=== PATIENT | male | born 1995 | race Caucasian/White ===

== ENCOUNTER 2020-12-01 20:01 | Inpatient (IN) | payer SELFPAY ==
[2020-12-01 20:10] VITALS: BP 151/90; PULSE 114; RESP 16; TEMP 36.8; O2SAT 97; BMI 25.8
--- NOTE | 2020-12-01 20:15 | ECG_ITS ---
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: : 1995 Requested By: Luis A Acosta Order Number: [id number] Tabby MD: MILAGROS VIDAL Measurements Intervals [place] Rate: 94 P: 76 [place]: 146 QRS: 56 QRSD: 114 T: 57 QT: 334 QTc: 418 Interpretive Statements SINUS RHYTHM INCOMPLETE RIGHT BUNDLE BRANCH BLOCK [90+ ms QRS DURATION, TERMINAL R IN V1/V2, 40+ ms S IN I/aVL/V4/V5/V6] No previous ECG available for comparison Electronically Signed On 12-02-2020 18:49:22 CDT by MILAGROS VIDAL [email or web address] with a [id number]
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
[2020-12-01 20:32] LABS: Basophils % 0.2 %; Eosinophils % 0.2 %; Hematocrit 41.8 % (42.0-52.0); Hemoglobin 13.9 g/dL (11.7-16.6); Lymphocytes # 1.3 10^3/uL (0.8-4.8); Lymphocytes % 10.5 %; Mean Corpuscular HGB Conc 33.3 g/dL (30.0-36.0); Mean Corpuscular Hemoglobin 29.3 pg (28.0-34.0); Mean Platelet Volume 9.7 fL (7.4-10.4); Monocytes # 0.9 10^3/uL (0.2-0.9); Monocytes % 7.4 %; Neutrophils # 9.77 10^3/uL (1.8-7.7); Neutrophils % 81.4 %; Nucleated Red Blood Cells % 0 %; Platelet Count 327 10^3/cmm (130-400); Red Blood Count 4.75 10^6/uL (4.1-5.3); Red Cell Distribution Width 12.6 % (12.1-15.1)
[2020-12-01 20:55] LABS: Add Urine Microscopic? NO; Charge for UA Resulting for Rev
[2020-12-01 21:00] LABS: Alanine Aminotransferase 13 U/L (0-41); Albumin Level 4.7 g/dL (3.5-5.2); Alkaline Phosphatase 55 IU/L (40-130); Anion Gap 18.7 (5-19); Aspartate Amino Transferase 23 U/L (0-40); Blood Urea Nitrogen 8 mg/dL (6-20); Calcium 9.7 mg/dL (8.5-10.5); Carbon Dioxide 22 mmol/L (22-29); Chloride 109 mmol/L (98-107); Globulin 2.6 g/dL (1.3-4.6); Glomerular Filtration Rate 74.4 mL/min (90-130); Glucose 107 mg/dL (65-115); Osmolality Calculated 301 mOsm/kg (285-295); Potassium 3.7 mmol/L (3.5-5.1); Sodium 146 mmol/L (136-145); Thyroid Stimulating Hormone 1.12 uIU/mL (0.27-4.20); Total Bilirubin 0.4 mg/dL (0.15-1.2); Total Protein 7.3 g/dL (6.6-8.7)
[2020-12-01 21:00] LABS: Bilirubin Urine Neg (Negative); Blood Urine Neg (Negative); Glucose Urine UA Norm (Normal); Ketones Urine Negative (Negative); Leukocyte Esterase Urine Negative (Negative); Nitrate Urine Negative (Negative); Protein Urine Neg (Negative); Urine Appearance Clear (CLEAR); Urine Color Yellow (Yellow); Urobilinogen Urine Norm (Negative); pH Urine 6 (5-7)
[2020-12-01 21:02] LABS: Acetaminophen < 5.0 ug/mL (10-30); Salicylate < 0.3 mg/dL (3-10)
[2020-12-01 21:37] LABS: Amphetamines Screen Urine Negative (Negative); Barbiturates Screen Urine Negative (Negative); Benzodiazepines Screen Urine Negative (Negative); Cocaine Screen Urine Negative (Negative); Opiate Screen Urine Negative (Negative); PCP Screen Urine Negative (Negative); THC Screen Urine Positive (Negative)
[2020-12-01] MEDS: iohexol 300 mg/mL 100 mL Btl IV (21:43)
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
[2020-12-01 22:59] VITALS: BP 138/72; PULSE 91; RESP 20; TEMP 36.8; O2SAT 97
[2020-12-01 23:10] VITALS: BP 122/69; PULSE 91; RESP 21; TEMP 36.8; O2SAT 95
[2020-12-01 23:11] VITALS: BP 122/69; PULSE 91; RESP 21; TEMP 36.8; O2SAT 95
[2020-12-01 23:54] LABS: Alcohol Level 221 mg/dL (0-10)
[2020-12-02 06:00] VITALS: BP 138/91; PULSE 66; RESP 20; TEMP 36.8; O2SAT 98
--- NOTE | 2020-12-02 07:58 | PC.NURSE ---
AM note Patient resting in bed during assessment, denied SI,HI. Patient denied desire to eat breakfast.
[2020-12-02] MEDS: nicotine 21 mg Patch 1 PATCH TRANSDERMA (12:37)
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
[2020-12-02] MEDS: citalopram 20 mg Tablet PO (13:02)
[2020-12-02 14:00] VITALS: BP 142/81; PULSE 89; RESP 16; TEMP 36.9; O2SAT 95
[2020-12-02 21:25] VITALS: BP 136/81; PULSE 70; RESP 16; TEMP 37; O2SAT 99
[2020-12-03 05:10] VITALS: BP 102/54; PULSE 82; RESP 18; TEMP 36.6; O2SAT 98
[2020-12-03 06:55] LABS: Glucose Point of Care 82 mg/dL (70-110)
[2020-12-03] MEDS: citalopram 20 mg Tablet PO (08:40)
--- NOTE | 2020-12-03 10:23 | P.PN_ITS ---
Subjective NPU Subjective: Interval history: Continues to be dismissive about the events leading to his hospitalization Continues to report that medications do not help him and that therapy does not help him Denies any interval mood symptoms, denies any suicidal ideation, denies any homicidal ideation Compliant with medication, states that it does not make him feel well Per staff, no interval behavioral disturbances Mental Status Exam MSE Comments: Lying in his bed, continues to be unkempt, disheveled, irritable but cooperative Psychomotor activity is somewhat decreased, no agitation Speech is low volume, normal rate, spontaneous, fair articulation, not pressured I'm fine, constricted, not labile Alert and oriented to person, place, time, situation Memory and concentration are fair per interview Thought process, linear, no flight of ideas, no looseness of associations Thought content, no delusions, does not appear to be attending to any internal stimuli, no suicidal homicidal ideation Insight and judgment appear to be poor to fair at best Vitals/I&O/Wt Last Vital Signs Temp 97.9 F 12/03/20 05:10 Pulse 82 12/03/20 05:10 Resp 18 12/03/20 05:10 BP 102/54 12/03/20 05:10 Pulse Ox 98 12/03/20 05:10 Weight last 48 hrs Weight 74.843 kg Data NPU : 12/01/20 20:21 12/01/20 20:21 A&P Assessment and plan (1) Suicidal ideation: Status: Acute (2) Homicidal ideation: Status: Acute (3) Alcohol intoxication: Status: Acute (4) Cannabis abuse: Status: Acute (5) PTSD (post-traumatic stress disorder): Status: Acute Additional A&P Information Continues to report PTSD symptoms but states that he does not want to take any medication that it makes his symptoms worse and that only marijuana helps with his symptoms. Continues to have poor to no insight into recent events of making threats towards other people as well as reporting that he would kill himself after killing others. Continues to require observation. CONTINUE current medication, continue to monitor Involuntary Hold Information 96 Hour Hold: 96 Hour Involuntary Admission: Yes 96 Hour Hold Ending Date: 12/06/20 96 Hour Hold Ending Time: 19:40 Attestations NPU Medical Necessity Statement*: Continues to require psychiatric hospitalization given lack of insight into patient's homicidal and suicidal threats Coding Level of Care Code Acute Movie Operator for g Fwd Diagnoses Suicidal ideation R45.851 Homicidal ideation R45.850 Alcohol intoxication F10.929 Cannabis abuse F12.10 PTSD (post-traumatic stress disorder) F43.10
[2020-12-03 13:11] VITALS: BP 129/71; PULSE 76; RESP 18; TEMP 37.2; O2SAT 96
[2020-12-03] MEDS: nicotine 21 mg Patch 1 PATCH TRANSDERMA (13:42)
[2020-12-03] MEDS: ondansetron 4 MG Tablet PO (18:36)
[2020-12-03 20:55] VITALS: BP 154/83; PULSE 82; RESP 18; TEMP 36.6; O2SAT 96
--- NOTE | 2020-12-04 05:42 | PC.NURSE ---
PM ASSESSMENT PT CALM, SPOKE TO MOTHER, REQUESTING A1C, AND A VIT D LEVEL NO PAIN, DENIES ALL, V/S ARE WNL
[2020-12-04 06:00] VITALS: BP 111/63; PULSE 82; RESP 18; TEMP 36.5; O2SAT 97
[2020-12-04] MEDS: citalopram 20 mg Tablet PO (09:34)
[2020-12-04] MEDS: ondansetron 4 MG Tablet PO (12:32)
--- NOTE | 2020-12-04 13:42 | P.PN_ITS ---
Subjective NPU Subjective: Interval history: Patient reports improving mood although occasionally irritable, denies any interval suicidal ideation Denies any homicidal ideation, states he has no thoughts about harming others Reports that he continues to have an upset stomach but reports being compliant with his medication Reports that his appetite has improved some Per staff report, no interval behavioral disturbances Mental Status Exam MSE Comments: Sitting up on his bed, unkempt, wearing hospital scrubs, polite and cooperative with interview, good eye contact Psychomotor activity is neither increased nor decreased, no agitation Speech is low volume, normal rate, spontaneous, fair articulation, not pressured I feel okay, constricted, not labile Alert and oriented to person, place, time, situation Memory and concentration are intact per interview Thought process, linear, no flight of ideas, no looseness of associations Thought content, no delusions, does not appear to be attending to any internal stimuli, no suicidal homicidal ideation Insight and judgment appear to be poor to fair at best Vitals/I&O/Wt Last Vital Signs Temp 97.7 F 12/04/20 06:00 Pulse 82 12/04/20 06:00 Resp 18 12/04/20 06:00 BP 111/63 12/04/20 06:00 Pulse Ox 97 12/04/20 06:00 Data NPU : 12/01/20 20:21 12/01/20 20:21 A&P Assessment and plan (1) Suicidal ideation: Status: Acute (2) Homicidal ideation: Status: Acute (3) Alcohol intoxication: Status: Acute (4) Cannabis abuse: Status: Acute (5) PTSD (post-traumatic stress disorder): Status: Acute Additional A&P Information Reports improvement, intermittent mood symptoms CONTINUE current medication, continue to monitor Involuntary Hold Information 96 Hour Hold: 96 Hour Involuntary Admission: Yes 96 Hour Hold Ending Date: 12/06/20 96 Hour Hold Ending Time: 19:40 Attestations NPU Medical Necessity Statement*: Continues require psychiatric hospitalization for medication stabilization Coding Level of Care Code 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
[2020-12-04 14:00] VITALS: BP 118/68; PULSE 73; RESP 17; TEMP 37.8; O2SAT 95
[2020-12-04 22:00] VITALS: BP 132/87; PULSE 64; RESP 18; TEMP 36.4; O2SAT 96
[2020-12-05 06:00] VITALS: BP 121/78; PULSE 66; RESP 14; TEMP 36.8; O2SAT 96
[2020-12-05] MEDS: citalopram 20 mg Tablet PO (09:19)
--- NOTE | 2020-12-05 13:35 | PM.NPN ---
Subjective NPU Subjective: Interval history: Reports improving mood, denies any interval suicidal ideation and denies any homicidal ideation Denies any interval irritability or anger Reports being compliant with medication, denies any medication side effects Mental Status Exam MSE Comments: Lying in his bed, unkempt, calm, cooperative, good eye contact Psychomotor activity is neither increased nor decreased, no agitation Speech is normal volume, normal rate, spontaneous, fair articulation, not pressured I feel good, constricted, not labile Alert and oriented to person, place, time, situation Memory and concentration are intact per interview Thought process, linear, no flight of ideas, no looseness of associations Thought content, no delusions, does not appear to be attending to any internal stimuli, no suicidal homicidal ideation Insight and judgment appear to be poor to fair at best Vitals/I&O/Wt Last Vital Signs Temp 98.3 F 12/05/20 06:00 Pulse 66 12/05/20 06:00 Resp 14 12/05/20 06:00 BP 121/78 12/05/20 06:00 Pulse Ox 96 12/05/20 06:00 Data NPU : 12/01/20 20:21 12/01/20 20:21 A&P Assessment and plan (1) Suicidal ideation: Status: Acute (2) Homicidal ideation: Status: Acute (3) Alcohol intoxication: Status: Acute (4) Cannabis abuse: Status: Acute (5) PTSD (post-traumatic stress disorder): Status: Acute Additional A&P Information Reports improving mood, denies any interval suicidal ideation or homicidal ideation CONTINUE current medication, continue to monitor Involuntary Hold Information 96 Hour Hold: 96 Hour Involuntary Admission: Yes 96 Hour Hold Ending Date: 12/06/20 96 Hour Hold Ending Time: 19:40 Attestations NPU Medical Necessity Statement*: Continues to require psychiatric hospitalization for medication stabilization, coordination for safe discharge Coding Level of Care Code 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
[2020-12-05 13:37] VITALS: BP 130/84; PULSE 66; RESP 16; TEMP 36.9; O2SAT 94
[2020-12-05] MEDS: OLANZapine 5 mg ODT PO (15:35)
[2020-12-05 19:36] VITALS: BP 102/50; PULSE 70; RESP 17; TEMP 36.5; O2SAT 97
[2020-12-06 06:00] VITALS: BP 102/66; PULSE 87; RESP 16; TEMP 36.7; O2SAT 98
[2020-12-06] MEDS: citalopram 20 mg Tablet PO (07:53)
--- NOTE | 2020-12-06 12:14 | P.DS_ITS ---
Diagnoses at Discharge Discharge Diagnosis (1) Suicidal ideation: Status: Acute (2) Homicidal ideation: Status: Acute (3) Alcohol intoxication: Status: Acute (4) Cannabis abuse: Status: Acute (5) PTSD (post-traumatic stress disorder): Status: Acute Reason for Visit Reason for Visit: 96 Hospital Course Hospital Course 25 year old male with longstanding psychiatric history of depressive symptoms with multiple past psychiatric hospitalizations for suicidal ideation with last psychiatric hospitalization approximately a year ago presenting to the emergency department by police on 96-hour hold homicidal threats against the police officers, his parents and then reporting that he would kill himself. Patient had previously been drinking whiskey and had smoked marijuana but denies any other illicit drug use. Patient states that he must to drink too much and that he does not recall the events or making these threats but does report having some friction with his mother and stepfather and that they owe him money. Patient continued to deny any suicidal or homicidal ideation at the time of initial evaluation and when confronted with his statement that he had told the ER that he would deny any homicidal or suicidal ideation and then subsequently leave the hospital and harm the railroad police officer, his parents and then commit suicide, he denied making these statements and that he was quite intoxicated and does not recall the events leading to his hospitalization. Patient denied initially any mood symptoms but reports having longstanding trauma related symptoms to include reexperiencing, hyperarousal and occasional nightmares. Patient reports that he uses marijuana to help with his anxiety symptoms. Patient was started on citalopram which was titrated up to citalopram 20 mg daily which he tolerated well with no reports of any medication side effects. Patient participated in unit milieu with no reports of any behavioral disturbances. Patient was not suicidal or homicidal throughout his hospital stay and was denying any suicidal ideation at the time of discharge and did not appear to pose an imminent threat of harm to self or others. Patient's mother was called at the time of discharge, who agreed to pick him up from the hospital, and stated that she had no safety concerns about his return home. Low to moderate risk of harm to self given no current homicidal or suicidal ideation and no current endorsement of psychiatric symptoms although patient's risk may be elevated if he continues to abuse alcohol or any substances leading to impulsive, unexpected behavior. Risk mitigation included psychiatric hospitalization for persistence of any suicidal or homicidal ideation or behaviors, medication stabilization, recommendation to abstain from the use of any substances and alcohol as well as the need for compliance with his medication, medication management and substance counseling/treatment. Patient was able to communicate his understanding of the need to abstain from the use of alcohol as well as substances and the need for compliance with his medication, medication management and substance counseling/treatment in order to further mitigate his risk of harm to self and others. Involuntary Hold Information 96 Hour Hold: 96 Hour Involuntary Admission: Yes 96 Hour Hold Ending Date: 12/06/20 96 Hour Hold Ending Time: 19:40 Mental Status Exam MSE Comments: Sitting in the day room, calm, cooperative, appropriately dressed in hospital scrubs, polite, good eye contact Psychomotor activity is neither increased nor decreased, no agitation Speech is normal volume, normal rate, spontaneous, fair articulation, not pressured I feel good, constricted, not labile Alert and oriented to person, place, time, situation Memory and concentration are intact per interview Thought process, linear, no flight of ideas, no looseness of associations Thought content, no delusions, does not appear to be attending to any internal stimuli, no suicidal homicidal ideation Insight and judgment appear to be fair to intact based on patient's ability to communicate his understanding of the situation it led to his hospitalization as well as the need to abstain from the use of alcohol and substances given that his suicidal and homicidal statements were made in the context of intoxication as well as the potential to exacerbate his underlying psychiatric condition by ongoing use of substances and alcohol. Discharge Data Data Completed and Pending: Completed Studies During Hospitalization Category Date Time Status CT abdomen pelvis w con* [id number] Urge nt Cat Scan 12/01/20 20:21 Completed XR chest 1V swathi ble [id number] Stat Exams 12/01/20 20:21 Completed Vitals: Last Vital Signs Temp 98.1 F 12/06/20 06:00 Pulse 87 12/06/20 06:00 Resp 16 12/06/20 06:00 BP 102/66 12/06/20 06:00 Pulse Ox 98 12/06/20 06:00 Discharge Plan Discharge Patient Disposition: Home Condition: Stable Prescriptions: New citalopram 20 mg Tablet 20 mg PO DAILY Qty: 30 RF: 0 No Action No Known Home Medications RF: 0 Discharge Orders: Discharge Order (Routine); Ordered 12/06/20 Ordered By: Samuel Dunbar Referrals: [facility] [Other] - 12/13/20 10:00 am (Arrive 30 minutes early to set up as new patient) Discharge Diet: Regular Discharge Activity: Resume usual activity Patient Instructions: Opioid Safety Discharge Attestations NPU Time Spent in Discharge Care*: greater than 30 min Status at Discharge: Cognitive status at discharge: cognitively intact , Behavioral status at discharge: cooperative , Functional status at discharge: independent ambulation Overall status at discharge: patient is back to baseline Coding Level of Care Code Acute Chg FW DC note Diagnoses Suicidal ideation R45.851 Homicidal ideation R45.850 Alcohol intoxication F10.929 Cannabis abuse F12.10 PTSD (post-traumatic stress disorder) F43.10
[2020-12-06 13:20] VITALS: BP 102/66; PULSE 87; RESP 16; TEMP 36.7; O2SAT 98
[2020-12-06 14:00] VITALS: RESP 16
== END 2020-12-06 18:30 | disposition home or self-care (01) | DRG 882 ==
LOC: ER 22:36 → NP 22:43
PROVIDERS: Admitting Provider Psychiatry & Neurology Psychiatry; Emergency Provider Family Medicine; Visit Provider Psychiatry & Neurology Psychiatry
DX: F43.10 Post-traumatic stress disorder, unspecified (principal); R45.851 Suicidal ideations; R45.850 Homicidal ideations; F10.129 Alcohol abuse with intoxication, unspecified; Y90.7 Blood alcohol level of 200-239 mg/100 ml; F12.10 Cannabis abuse, uncomplicated; Z63.8 Other specified problems related to primary support group
CPT/HCPCS: 36416; 71045; 74177; 80053; 80306; 80307; 81003; 82962; 84443; 85025; 93005; 99285; Q0162; Q9967